=== PATIENT | male | born 1975 | race Caucasian/White ===

== ENCOUNTER 2021-01-31 09:11 | Emergency (ER) | payer BC, SELFPAY ==
[2021-01-31 09:15] VITALS: BP 143/100; PULSE 106; RESP 20; TEMP 36.7; O2SAT 99; BMI 40.8
[2021-01-31 09:30] VITALS: BP 134/93; PULSE 99; O2SAT 98
--- NOTE | 2021-01-31 09:48 | HMH.EDGENADL ---
ED Disposition Clinical Impression: Gastroenteritis, Dehydration Disposition: Home, Self-Care Condition on Discharge: Fair Instructions: DI for Viral Gastroenteritis -- Adult Additional Instructions: Call the emergency department in 2 to 4 hours to get diarrhea panel results if you have not received a call. Zofran as needed for nausea. Imodium as needed for diarrhea. Drink plenty of fluids. Tylenol for any pain or fever. Additional instructions for VOMITING/DIARRHEA: See your physician as soon as possible for further evaluation. Return immediately if severe abdominal pain, uncontrollable vomiting, shortness of breath, fever, vomiting of blood or abdominal distention. Prescriptions: Ondansetron [Zofran 4mg ODT] 4 mg PO TIDP PRN #[id number] tab.rapdis PRN Reason: Nausea And Vomiting Transmission Status: Pending to [id number] Referrals: Provider,Referral, [Primary Care Provider] - - Critical Care Critical Care Time: No Attestation: On , the high probability of a clinically significant, sudden or life threatening deterioration of the following system(s) required my full and direct attention, intervention and personal management. The time I documented below is in addition to time spent performing reported procedures but includes the following listed in this critical care notation. Medical Decision Making - Jacinto Inquiry Pt receiving controlled substance: No Vital Signs: 01/31/21 09:15 01/31/21 09:30 Temperature 98.1 F Temperature Source Oral Pulse Rate 99 H Pulse Rate [Right] 106 H Respiratory Rate 20 Blood Pressure 134/93 H Blood Pressure [Right Arm] 143/100 H Blood Pressure Mean 108 Blood Pressure Mean [Right Arm] 114 02 Sat by Pulse Oximetry 99 98 Oxygen Delivery Method Room Air - Lab Data Lab Results 01/31/21 09:40: WBC 8.2, RBC 6.04, Hgb 18.3 H*, Hct 51.3, MCV 84.9, MCH 30.0, MCHC 35.4, RDW 15.6, Plt Count 121 L, MPV 7.0 L, Neut % (Auto) 70.4, Lymph % (Auto) 21.8, Otoe % (Auto) 4.8, Eos % (Auto) 2.2, Baso % (Auto) 0.8, Neut # (Auto) 5.8, Lymph # (Auto) 1.8, Otoe # (Auto) 0.4, Eos # (Auto) 0.2, Baso # (Auto) 0.1 01/31/21 09:40: Sodium 141, Potassium 4.0, Chloride 109 H, Carbon Dioxide 18 L, Anion Gap 18.0 H, BUN 18, Creatinine 0.90, Estimated Creat Clear 186, Estimated GFR 90, Est GFR ( Amer) 109, Glucose 136 H, Calcium 9.1, Total Bilirubin 1.8 H, AST 45, ALT 67, Alkaline Phosphatase 100, Total Protein 8.3 H, Albumin 5.1 H, Globulin 3.2, Albumin/Globulin Ratio 1.6, Lipase 40 01/31/21 09:50: Urine Color Yellow, Urine Appearance Clear, Urine pH 5.5, Ur Specific Bethany >= 1.030, Urine Protein 1+, Urine Glucose (UA) Negative, Urine Ketones Trace, Urine Blood Negative, Urine Nitrate Negative, Urine Bilirubin 1+ A, Urine Urobilinogen 0.2, Ur Leukocyte Esterase Negative, Urine RBC None, Urine WBC 3-5, Ur Squamous Epith Cells Occasional, Urine Bacteria None 01/31/21 11:35: Stl Aeromonas (PCR) Not detected, Stl C. cayetanensis PCR Not detected, Stool Rotavirus (PCR) Not detected, Stl Adenov F 40/41 PCR Not detected, Stool Astrovirus (PCR) Not detected, Stool Campylobacter PCR Not detected, Stl C.difficile Tox PCR Not detected, Stool Cryptosporidium PCR Not detected, Stl E.coli Shiga Tox PCR Not detected, Stool E coli O157 PCR Not detected, Stl Enterotoxigenic E PCR Not detected, Stool EPEC (PCR) Not detected, Stool EAEC (PCR) Not detected, Stl E. histolytica PCR Not detected, Stool Giardia Lamblia PCR Not detected, Stool Salmonella PCR Not detected, Stool Sapovirus (PCR) Not detected, Stl P. shigelloides PCR Not detected, Stl Shigella/EIEC PCR Not detected, St Y.enterocolitica PCR Not detected, Stool Vibrio (PCR) Not detected, Stl Vibrio cholerae PCR Not detected, Stl Norovirus GI/GII PCR Not detected Result diagrams: 01/31/21 09:40 01/31/21 09:40 Orders (Tests/Meds): ED MEDICATIONS Discontinued Medications Generic Name Dose Route Start Last Admin Trade Name Fredaria PRN Reas
[2021-01-31 09:50] LABS: Basophils # 0.1 K/mm3 (0-0.2); Basophils % 0.8 % (0.1-2.0); Eosinophils # 0.2 K/mm3 (0.0-0.4); Eosinophils % 2.2 % (0.1-12.0); Hematocrit 51.3 % (42.0-52.0); Lymphocytes # 1.8 K/mm3 (0.7-4.5); Lymphocytes % 21.8 % (10-50); Mean Corpuscular HGB Conc 35.4 g/dL (31.8-35.4); Mean Corpuscular Volume 84.9 fl (80-94); Monocytes # 0.4 K/mm3 (0.1-1.0); Monocytes % 4.8 % (1.7-9.3); Neutrophils # 5.8 K/mm3 (1.8-7.8); Neutrophils % 70.4 % (37.0-80.0); Platelet Count 121 K/mm3 (142-424); Red Blood Count 6.04 M/mm3 (4.60-6.20); Red Cell Distribution Width 15.6 % (11.5-17.5); White Blood Count 8.2 K/mm3 (4.8-10.8)
--- NOTE | 2021-01-31 09:53 | PC.NURSE ---
Pt attempted to have a bm at this time, states its only gas
[2021-01-31 09:54] LABS: Hemoglobin 18.3 g/dL (14.1-18.0)
[2021-01-31 09:58] LABS: Microscopic, Urine URINE MICROSCOPIC (MICROSCOPIC)
[2021-01-31 10:00] LABS: Appearance,Urine CLEAR (Clear); Blood, Urine Negative (Negative); Color,Urine YELLOW (Yellow); Glucose,Urine (UA) Negative (Negative); Ketones,Urine TRACE (Negative); Leukocyte Esterase,Urine Negative (Negative); Nitrate,Urine Negative (Negative); PH,Urine 5.5 (5.0-8.5); Protein,Urine 1+ (Negative); Specific Gravity, Urine >= 1.030 (1.005-1.030); Urobilinogen,Urine 0.2 EU/dl (0.2)
[2021-01-31 10:01] LABS: Bilirubin,Urine 1+ (Negative)
--- NOTE | 2021-01-31 10:01 | CT_ITS ---
PROCEDURE INFORMATION: Exam: CT Abdomen And Pelvis With Contrast Exam date and time: 01/31/2021 10:01 AM Age: 46 years old Clinical indication: Abdominal pain; Flank; Left; Additional info: Abdominal and left flank pain TECHNIQUE: Imaging protocol: Computed tomography of the abdomen and pelvis with contrast. Radiation optimization: All CT scans at this facility use at least one of these dose optimization techniques: automated exposure control; mA and/or kV adjustment per patient size (includes targeted exams where dose is matched to clinical indication); or iterative reconstruction. Contrast material: ISOVUE; Contrast volume: 75 ml; Contrast route: IV; COMPARISON: No relevant prior studies available. FINDINGS: Liver: The liver is normal in appearance, without evidence of mass or intrahepatic bile duct dilatation. Gallbladder and bile ducts: The gallbladder is normal appearance, without evidence of gallbladder wall thickening or pericholecystic fluid. Pancreas: The pancreas is normal in appearance, without evidence of mass, cyst, peripancreatic inflammatory change, or pancreatic duct dilatation. Spleen: The spleen is normal in appearance. Adrenal glands: Both adrenal glands are normal in appearance, without evidence of mass or focal abnormality. Kidneys and ureters: There are multiple nonobstructing calculi in both kidneys. There is no evidence of hydronephrosis or hydroureter on either side. There is a simple appearing cyst in the left kidney that measures 1.7 cm on axial image 40. Stomach and bowel: Most the stomach is normal in appearance. However, there is a loop of bowel in the expected location of the duodenal bulb which demonstrates several abnormal densities and what appears to be a target sign, best seen on axial image 32, and coronal image 42. This raises the possibility of focal intussusception. The terminal ileum and cecum are within normal limits. The ascending, transverse, and descending colon are within normal limits. Sigmoid colon and rectum are unremarkable. Appendix: The appendix is normal in appearance, without evidence of wall thickening or periappendiceal fat stranding. Intraperitoneal space: Unremarkable. No free air. No significant fluid collection. Vasculature: Unremarkable. No abdominal aortic aneurysm. Lymph nodes: Unremarkable. No enlarged lymph nodes. Urinary bladder: Unremarkable as visualized. Reproductive: Unremarkable as visualized. Bones/joints: Unremarkable. No acute fracture. Soft tissues: Unremarkable. IMPRESSION: 1. Target sign involving the proximal duodenum. This imaging appearance raises concern for the possibility of an intussusception. Would consider further evaluation with contrast-enhanced imaging following administration of oral contrast. 2. Multiple nonobstructing calculi in both kidneys. No evidence of hydronephrosis. 3. Findings were discussed with EDWARD AGUIAR at 01/31/2021 11:29 AM EDT. COMMENTS: Consistent with the [employer]'s Incidental Findings Committee white paper (J Am Carlos Radiol 2018): Any incidental renal lesion less than 1 cm or classified as too small to characterize, or any incidental cystic renal lesion characterized as simple-appearing, is likely benign. No follow-up imaging is recommended for these lesions per consensus recommendations based on imaging criteria.
[2021-01-31 10:08] LABS: Squamous Epithelial Cell,Urine Occasional #/hpf (0-5)
[2021-01-31 10:10] LABS: Chloride 109 mmol/L (98-107); Sodium 141 mmol/L (136-145)
[2021-01-31 10:13] LABS: Alanine Aminotransferase 67 U/L (12-78); Albumin Level 5.1 g/dl (3.5-5.0); Albumin/Globulin Ratio 1.6 (1.1-1.8); Alkaline Phosphatase 100 U/L (38-126); Aspartate Amino Transferase 45 U/L (17-59); Bilirubin,Total 1.8 mg/dl (0.2-1.3); Blood Urea Nitrogen 18 mg/dl (9-20); Calcium 9.1 mg/dl (8.4-10.2); Carbon Dioxide 18 mmol/L (22.0-30.0); Creatinine Clearance Estimated 186 mL/min (50-200); Estimated Glomerular Filt Rate 90 ml/min (>60); GFR (African American) 109 ML/MIN (>60); Globulin 3.2 g/dL (1.3-3.2); Glucose 136 mg/dl (74-100); Lipase 40 U/L (23-300); Total Protein,Serum 8.3 g/dl (6.3-8.2)
--- NOTE | 2021-01-31 11:20 | PC.NURSE ---
Daria calling and speaking with Dr Mcgregor at this time.
--- NOTE | 2021-01-31 11:25 | CT_ITS ---
PROCEDURE INFORMATION: Exam: CT Abdomen Without Contrast Exam date and time: 01/31/2021 11:25 AM Age: 46 years old Clinical indication: Vomiting; Additional info: ? Intussusseption of duodenum on CT TECHNIQUE: Imaging protocol: Computed tomography images of the abdomen without contrast. Radiation optimization: All CT scans at this facility use at least one of these dose optimization techniques: automated exposure control; mA and/or kV adjustment per patient size (includes targeted exams where dose is matched to clinical indication); or iterative reconstruction. COMPARISON: CT ABDOMEN PELVIS W CON 01/31/2021 10:50 AM FINDINGS: Liver: Normal. No mass. Gallbladder and bile ducts: Normal. No calcified stones. No ductal dilation. Pancreas: Normal. No ductal dilation. Spleen: Normal. No splenomegaly. Adrenals: Normal. No mass. Kidneys and ureters: No hydronephrosis. Stomach and bowel: Stomach, duodenal bulb, 2nd and 3rd portions of the duodenum demonstrate normal intraluminal filling. No intussusception is identified on the current exam. IMPRESSION: No intussusception identified on the current study.
[2021-01-31 11:41] LABS: Adenovirus F 40/41, stool Not Detected (NotDetected); Astrovirus Not Detected (NotDetected); Campylobacter Not Detected (NotDetected); Clostridium Difficile A/B, PCR Not Detected (NotDetected); Cryptosporidium Not Detected (NotDetected); Cyclospora Cayetanesis Not Detected (NotDetected); Entamoeba histolytica Not Detected (NotDetected); Enteroaggregative E coli Not Detected (NotDetected); Enteropathogenic E coli Not Detected (NotDetected); Enterotoxigenic E coli Not Detected (NotDetected); Giardia lamblia Not Detected (NotDetected); Norovirus Not Detected (NotDetected); Plesimonas Shigalloides, PCR Not Detected (NotDetected); Rotavirus A Not Detected (NotDetected); Salmonella, PCR Not Detected (NotDetected); Sapovirus Not Detected (NotDetected); Shiga-like toxin E coli Not Detected (NotDetected); Shigella Enterovasive E coli Not Detected (NotDetected); Vibrio Cholerae Not Detected (NotDetected); Vibrio, PCR Not Detected (NotDetected); Yersinia Entercolitica, PCR Not Detected (NotDetected)
[2021-01-31 13:30] VITALS: BP 159/91; PULSE 84; RESP 15; TEMP 36.8; O2SAT 98
== END 2021-01-31 13:59 | disposition home or self-care (01) ==
PROVIDERS: Emergency Provider Emergency Medicine
DX: K52.9 Noninfective gastroenteritis and colitis, unspecified (principal); E86.0 Dehydration
CPT/HCPCS: 74150; 74177; 80053; 81001; 83690; 85025; 87506; 96365; 99283; J2405; Q9967